=== PATIENT | male | born 2000 | race Caucasian/White ===

== ENCOUNTER 2021-12-29 20:03 | Emergency (ER) | payer BC ==
[~2021-12-29] VITALS: Ht 182.9 cm; Wt 90.9 kg
[2021-12-29 22:45] VITALS: BP 128/84; PULSE 76; TEMP 98.2
== END 2021-12-29 22:45 | disposition home or self-care (01) ==
LOC: COL.ER 20:03
DX: S52.122A Displaced fracture of head of left radius, initial encounter for closed fracture (principal); Z28.311 Partially vaccinated for COVID-19; V00.131A Fall from skateboard, initial encounter; Y93.51 Activity, roller skating (inline) and skateboarding